=== PATIENT | female | born 1940 | race Caucasian/White ===

== ENCOUNTER 2017-01-01 13:46 | Emergency (ER) | payer MEDICARE, BC ==
--- NOTE | 2017-01-01 17:03 | ER ---
DATE SEEN: 01/01/2017 The patient was seen at 1400 hours. 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 She had her flu shot this last fall. She denies fevers. No shortness of breath. There is no back pain, abdominal pain, jaw pain, chest pain, abdominal discomfort, nausea, vomiting, diarrhea, myalgia, or having been laid up in bed for 3 to 4 days. PAST MEDICAL HISTORY: Hypertension, treated; has had previous hysterectomy, hemorrhoidectomy, and tonsillectomy. FAMILY HISTORY: The patient's parents; mother at age 64 of a stroke, father at age 55 of leukemia. PAST MEDICAL HISTORY: The patient is treated for hypertension and arthritis. MEDICATIONS: 1. Meloxicam 15 mg daily. 2. Levothyroxine 112 mcg daily. 3. Lisinopril/hydrochlorothiazide 10/12.5 daily. 4. Amitriptyline h.s. OTHER PAST MEDICAL HISTORY: Hypothyroidism, arthritis, hypertension. ALLERGIES: Codeine. REVIEW OF SYSTEMS: Otherwise negative except for noted above. 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 SOCIAL HISTORY: . Nonsmoker. Does not drink alcohol. She did smoke 40+ years ago for a few years. PHYSICAL EXAMINATION: VITAL SIGNS: Blood pressure 134/84, heart rate 70, respirations 18, oxygen saturation 99%, temperature 36.6 degrees centigrade. HEENT: PERRLA intact. GENERAL: Alert, well-dressed woman who has no pharyngeal erythema. No cervical adenopathy. NECK: No bruits in the neck. Thyromegaly. LUNGS: Clear to auscultation without rales, rhonchi, or wheezes. HEART: S1, S2. No irregular rate and rhythm. ABDOMEN: Soft. No hepatosplenomegaly, guarding, or discomfort. DERMIS: Negative. ASSESSMENT: Viral bronchitis. PLAN: 1. Not treat with antibiotics. Per CDC's recommendations. 2. Delsym [id number]. 3. Face mask / for the next 5 to 10 days. The patient advised the average duration of bronchitis is 18 days, and she is well aware that she may be coughing intermittently and is to drink 2 quarts of water a day. Follow up with doctor as needed. /[id number] LAURI/ESTELLE LÓPEZ
== END 2017-01-01 14:20 | disposition home or self-care (01) ==
LOC: FB.ED 13:46
CPT/HCPCS: 99282

== ENCOUNTER 2021-10-05 12:14 | Emergency (ER) | payer MEDICARE, BC ==
--- NOTE | 2021-10-05 12:37 | EDM.PDOC ---
ED HPI GENERAL MEDICAL PROBLEM - General Chief Complaint: Lower Extremity Injury/Pain Stated Complaint: L LEG PAIN Time Seen by Provider: 10/05/21 12:33 Source of Information: Reports: Patient History Limitations: Reports: No Limitations - History of Present Illness INITIAL COMMENTS - FREE TEXT/NARRATIVE: 81-year-old female who reports for the past 3 months she has been having pain in her left lower back and it radiates to her left thigh. The pain does seem to be worse with activity and better with rest. It is a sharp pain that shoots down her leg. She reports the pain is a 3/10 now with her sitting and it goes up to an 8/10 when she is walking. She has been getting relief from extra strength Tylenol and takes it maybe 1-2 times a day. She feels that the pain does seem to be worsening. She did have a S I joint surgery in May 2021, she has been having pain in her left lower back for quite some time (she states 6-7 years) and it was felt by the painter chassis in [place] that she was having problems with her left SI joint. She reports that the pain really has not improved after the surgery and in fact she feels that it is worse now than it was before the surgery. There has been no history of trauma. She has had no bowel or bladder control problems. She has had no leg weakness. No dysuria or hematuria. No fevers or chills. No abdominal pain. There are no other associated signs or symptoms. There are no other modifying factors. 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 Left Hip Pain Score (Numeric/FACES): 8 - Related Data Allergies Allergy/AdvReac Type Severity Reaction Status Date / Time codeine Allergy Anxiety Verified 01/01/17 14:06 Home Meds: Home Meds Amitriptyline [Elavil] 10 mg PO BEDTIME 01/01/17 [History] Levothyroxine 112 mcg PO ACBREAKFAST 01/01/17 [History] Lisinopril/Hydrochlorothiazide [Lisinopril-Hctz 10-12.5 mg Tab] 1 each PO DAILY 01/01/17 [History] Meloxicam 15 mg PO DAILY 01/01/17 [History] Citalopram [Citalopram HBr] 40 mg PO DAILY 10/05/21 [History] Gabapentin [Neurontin] 300 mg PO DAILY 10/05/21 [History] Past Medical History Cardiovascular History: Reports: Hypertension Musculoskeletal History: Reports: Back Pain, Chronic Neurological History: Reports: Other (See Below) (Trigeminal neuralgia) - Past Surgical History Female Surgical History: Reports: Hysterectomy Musculoskeletal Surgical History: Reports: Other (See Below) (Left SI joint surgery) Social & Family History - Tobacco Use Tobacco Use Status *Q: Unknown Ever Used Tobacco (Nonsmoker.) - Caffeine Use Caffeine Use: Reports: Coffee - Alcohol Use Alcohol Use History: No - Living Situation & Occupation Living situation: Reports: (Recently ) Occupation: Retired Review of Systems - Review of Systems Review Of Systems: See Below Constitutional: Denies: Fever, Weakness Eyes: Denies: Blurred Vision, Vision Change Ears: Denies: Dizziness, Pain Nose: Denies: Congestion, Pain Mouth/Throat: Denies: Pain Respiratory: Denies: Shortness of Breath, Cough Cardiovascular: Denies: Chest Pain, Palpitations GI/Abdominal: Denies: Abdominal Pain, Nausea, Vomiting Genitourinary: Denies: Dysuria, Hematuria Musculoskeletal: Reports: Back Pain. Denies: Neck Pain Skin: Denies: Diaphoresis, Rash Neurological: Reports: Other (Left lumbar radiculopathy type pain.) Psychiatric: Denies: Anxiety ED EXAM, GENERAL - Physical Exam Exam: See Below Exam Limited By: No Limitations General Appearance: Alert, WD/WN, No Apparent Distress Eye Exam: Bilateral Eye: EOMI, Normal Inspection, PERRL Ears: Normal External Exam, Hearing Grossly Normal Ear Exam: Bilateral Ear: Auricle Normal Nose: Normal Inspection, Normal Mucosa, No Blood Throat/Mouth: Normal Inspection, Normal Oropharynx, Normal Voice, No Airway Compromise Head: Atraumatic, Normocephalic Neck: Normal Inspection, Supple, Non-Tender, Full Range of Motion Respiratory/Chest: No Respiratory Distress, Lungs Clear, Normal Breath Sounds, No Accessory Muscle Use, Chest Non-Tender Cardiovascular: Normal Peripheral Pulses, Regular Rate, Rhythm, No Murmur Peripheral Pulses: 2+: Radial (L), Radial (R) GI/Abdominal: Normal Bowel Sounds, Soft, Non-Tender, No Mass Back Exam: Normal Inspection. No: Muscle Spasm, Paraspinal Tenderness, Vertebral Tenderness Extremities: Normal Inspection, Normal Range of Motion, Non-Tender, No Pedal Edema, Normal Capillary Refill Neurological: Alert, Oriented, CN II-XII Intact, Normal Cognition, No Motor/Sensory Deficits Psychiatric: Normal Affect Skin Exam: Warm, Dry, Intact, Normal Color, No Rash Course - Vital Signs Last Recorded V/S: Last Vital Signs Temp 36.1 C 10/05/21 12:21 Pulse 71 10/05/21 12:21 Resp 15 10/05/21 12:21 BP 138/90 10/05/21 12:21 Pulse Ox 98 10/05/21 12:21 - Re-Assessments/Exams Free Text/Narrative Re-Assessment/Exam: 10/05/21 12:55: Patient with what appears to be a left lumbar radiculopathy. The predominant pain that she is describing is radiating pain down to her left thigh. She has had no bowel or bladder control problems. There is no leg weakness. She did have an MRI back in 2019 which showed multilevel DJD and some disc disease with canal narrowing and L3-L4, L4-L5 and L5-S1 were all affected. I do not feel that any general x-rays would be of help in delineating the patient's problems. I discussed all this with the patient. She is followed by pain specialist in [place] and she definitely needs to follow-up with him. For now, I am going to have her take Tylenol 1000 mg by mouth every 6 hours as needed. I have also told her that she needs to increase her gabapentin to 300 mg 3 times a day. Precautions and reasons for return to the emergency department were discussed with the patient while she was in the emergency department ever detailed in the patient's discharge instructions. Departure - Departure Time of Disposition: 13:05 Disposition: Home, Self-Care 01 Condition: Good (Stable) Clinical Impression: Pain in left lumbar region of back, Left lumbar radiculopathy - Discharge Information Instructions: Radicular Pain, Chronic Back Pain, [id number] Referrals: Lucille Sauceda [employer]ER [Primary Care Provider] - Forms: ED Department Discharge Additional Instructions: I believe that the pain in your left lower back and going to your left leg represents a problem with your lower back and a disc in your lower back causing pressure on a nerve coming out of your spine to your left leg. You will need to follow-up with your painter chassis in [place] you should call him to arrange for this. In the meantime, you can take Tylenol 1000 mg by mouth every 6 hours as needed for pain. You should also continue to take your Celebrex. Take gabapentin/Neurontin 300 mg 3 times a day instead of just one time a day. Back to the emergency department for fever, bowel or bladder control problems, leg weakness, fever, abdominal pain or any other concerning signs or symptoms. Sepsis Event Note (ED) - Evaluation Sepsis Screening Result: No Definite Risk - Focused Exam Vital Signs: Vital Signs Temp Pulse Resp BP Pulse Ox 10/05/21 12:21 36.1 C 71 15 138/90 98
== END 2021-10-05 13:19 | disposition home or self-care (01) ==
LOC: FB.ED 12:14
DX: M54.16 Radiculopathy, lumbar region (principal); I10 Essential (primary) hypertension; Z88.5 Allergy status to narcotic agent; Z79.899 Other long term (current) drug therapy
CPT/HCPCS: 99283